=== PATIENT | female | born 1995 | race Caucasian/White ===

== ENCOUNTER 2017-07-03 14:14 | Day surgery (SDC) | payer OTHER, SELFPAY ==
[2017-07-03 16:47] VITALS: BP 107/67; TEMP 98.7; BMI 26.1
[2017-07-03] MEDS ORDERED: FLU VACC QS2017-18 36 mo. & older 0.5 ML SYRINGE IM ONE (17:00)
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
== END 2017-07-03 16:45 | disposition home or self-care (01) ==
LOC: L&D/OP 14:14 → ERS 14:14 → EDSTATUS 15:59 → L&D/OP 16:45
PROVIDERS: ATTEND Obstetrics & Gynecology
DX: O36.8120 Decreased fetal movements, second trimester, not applicable or unspecified (principal); V89.2XXA Person injured in unspecified motor-vehicle accident, traffic, initial encounter; Z79.899 Other long term (current) drug therapy; Z3A.22 22 weeks gestation of pregnancy